=== PATIENT | female | born 1980 | race African-American/Black ===

== ENCOUNTER 2020-07-21 14:05 | Emergency (ER) | payer MEDICAID, OTHER ==
[~2020-07-21] VITALS: Ht 160 cm; Wt 73.0 kg
[2020-07-21] MEDS ORDERED: SODIUM CHLORIDE 0.9% 1,000 ML IV ONE (14:57)
[2020-07-21 15:00] VITALS: BP 128/76
[2020-07-21 15:48] LABS: CHLORIDE 111 mEq/L (98-107)
[2020-07-21 15:49] LABS: BASOPHILS % 1.2 % (0.0-2.0); EOSINOPHILS % 1.2 % (0.0-5.0); HEMATOCRIT. 26.5 % (36.0-48.0); LYMPHOCYTES % 23.5 % (20.0-50.0); MEAN CORPUSCULAR HEMOGLOBIN 20.5 pg (28.0-32.0); MEAN CORPUSCULAR VOLUME 67.5 fL (81.0-99.0); MEAN PLATELET VOLUME 6.5 fl (7.4-10.4); MONOCYTES % 6.2 % (2.0-8.0); NEUTROPHILS % 67.9 % (40.0-76.0); PLATELET 400 x1000/uL (130-400); RED BLOOD CELL COUNT 3.92 mill/uL (4.2-5.4); RED CELL DISTRIBUTION WIDTH 19.7 % (11.6-14.6)
[2020-07-21 15:54] LABS: ETHANOL BLOOD 63 mg/dL
[2020-07-21 15:57] LABS: CREATINE KINASE 222 IU/L (26-192)
[2020-07-21] MEDS ORDERED: ACETAMINOPHEN 325MG TABLET PO ONE (16:30)
[2020-07-21 18:04] LABS: HCG SCREEN NEGATIVE
[2020-07-21 19:13] LABS: PLATELET ESTIMATE NORMAL
== END 2020-07-21 16:30 | disposition home or self-care (01) ==
LOC: ER 14:18
DX: R51 Headache (principal); G89.11 Acute pain due to trauma; R45.1 Restlessness and agitation; Y04.0XXA Assault by unarmed brawl or fight, initial encounter; Y93.89 Activity, other specified; Y92.488 Other paved roadways as the place of occurrence of the external cause; R03.0 Elevated blood-pressure reading, without diagnosis of hypertension; D64.9 Anemia, unspecified; R79.89 Other specified abnormal findings of blood chemistry; F20.9 Schizophrenia, unspecified; G40.909 Epilepsy, unspecified, not intractable, without status epilepticus
CPT/HCPCS: 36415; 71045; 80053; 80307; 80320; 80329; 82140; 82550; 83690; 84443; 84703; 85025; 93005; 99285; J7030; G0480